=== PATIENT | male | born 2000 | race Two or more races ===

== ENCOUNTER 2021-08-16 09:02 | Emergency (ER) | payer OTHER, BC, SELFPAY ==
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
[2021-08-16 09:07] VITALS: BP 150/59; PULSE 88; RESP 16; TEMP 37.4; O2SAT 99; BMI 22.4
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
== END 2021-08-16 10:54 | disposition home or self-care (01) ==
PROVIDERS: Emergency Provider Emergency Medicine
DX: S29.011A Strain of muscle and tendon of front wall of thorax, initial encounter (principal); S46.912A Strain of unspecified muscle, fascia and tendon at shoulder and upper arm level, left arm, initial encounter; M54.6 Pain in thoracic spine; M54.50 Low back pain, unspecified; R07.89 Other chest pain; V43.52XA Car driver injured in collision with other type car in traffic accident, initial encounter; Y93.9 Activity, unspecified; Y92.410 Unspecified street and highway as the place of occurrence of the external cause; Y99.9 Unspecified external cause status
CPT/HCPCS: 71046; 72070; 73030; 99283